=== PATIENT | female | born 1985 | race Caucasian/White ===

== ENCOUNTER → 2022-12-25 | Outpatient (REF) | payer BC ==
[~2022-12-25] MED LIST: ANT PO; ANUS2.5C2 EXT; IBUP80TA PO; MAPA500T17 PO; MOTRIN PO; PRENTAB29 PO; PRENTAB74 PO; TYLENOL PO; ZANT150T PO
== END ==
LOC: M SFHCCLAY 14:29
PROVIDERS: ATTEND Nurse Practitioner Family
DX: Z12.4 Encounter for screening for malignant neoplasm of cervix (principal); R85.610 Atypical squamous cells of undetermined significance on cytologic smear of anus (ASC-US)
CPT/HCPCS: 87624; G0123

== ENCOUNTER → 2024-02-25 | Outpatient (CLI) | payer BC | LOC: M CLY 08:38 | PROVIDERS: ATTEND Physician Assistant | DX: M25.561 Pain in right knee (principal) ==

== ENCOUNTER → 2024-05-19 | Outpatient (REF) | payer BC ==
[2024-05-21 15:12] LABS: HPV APTIMA Not Detected (Not Detected)
== END ==
LOC: M SFHCCLAY 11:22
PROVIDERS: ATTEND Nurse Practitioner Family
DX: Z01.419 Encounter for gynecological examination (general) (routine) without abnormal findings (principal)
CPT/HCPCS: 87624; G0123